=== PATIENT | male | born 1955 | race Caucasian/White ===

== ENCOUNTER 2021-04-17 11:32 | Outpatient (CLI) | payer MEDICARE ==
[~2021-04-17 11:32] MED LIST: Iopamidol 370 76% 100 ML VIAL ONE
== END 2021-04-17 11:33 | disposition home or self-care (01) ==
LOC: CT 11:32
PROVIDERS: ATTEND Thoracic Surgery (Cardiothoracic Vascular Surgery)
DX: I71.02 Dissection of abdominal aorta (principal); I77.4 Celiac artery compression syndrome; I72.8 Aneurysm of other specified arteries; K55.1 Chronic vascular disorders of intestine; I70.1 Atherosclerosis of renal artery
CPT/HCPCS: 74174; 82565; Q9967

== ENCOUNTER 2022-05-09 12:35 | Outpatient (CLI) | payer MEDICARE ==
[2022-05-09] MEDS ORDERED: Iopamidol 370 76% 100 ML VIAL ONE (14:18)
== END 2022-05-09 12:36 | disposition home or self-care (01) ==
LOC: CT 12:35
PROVIDERS: ATTEND Thoracic Surgery (Cardiothoracic Vascular Surgery)
DX: I71.02 Dissection of abdominal aorta (principal); I70.1 Atherosclerosis of renal artery; I70.8 Atherosclerosis of other arteries; I77.4 Celiac artery compression syndrome
CPT/HCPCS: 75635; 82565; Q9967